=== PATIENT | female | born 1970 ===

== ENCOUNTER 2018-04-26 11:53 | Outpatient (CLI) | payer OTHER ==
[~2018-04-26] VITALS: Ht 172.7 cm; Wt 79.4 kg
== END 2018-04-26 12:15 | disposition home or self-care (01) ==
LOC: EDBD 11:53 → OFIC 805 11:53
DX: J40 Bronchitis, not specified as acute or chronic (principal); R49.0 Dysphonia; R05 Cough; Q38.3 Other congenital malformations of tongue

== ENCOUNTER 2018-05-23 12:16 | Outpatient (CLI) | payer OTHER ==
[~2018-05-23] VITALS: Ht 152.4 cm; Wt 79.4 kg
== END 2018-05-23 12:40 | disposition home or self-care (01) ==
LOC: OFIC 805 12:16
DX: J40 Bronchitis, not specified as acute or chronic (principal); R49.0 Dysphonia; Q38.3 Other congenital malformations of tongue